=== PATIENT | male | born 1970 | race Caucasian/White ===

== ENCOUNTER 2019-02-26 11:51 | Emergency (ER) | payer MEDICARE, MEDICAID ==
[~2019-02-26] VITALS: Ht 170.2 cm; Wt 113.6 kg
[~2019-02-26 11:51] MED LIST: HYDR-3565 PO; IBUP-1574 PO; INDO-12 PO; INDO50CA96 PO
[2019-02-26 12:07] VITALS: BP 178/100
[2019-02-26] MEDS ORDERED: HYDROcodone/acetaminophen 10/325mg tab PO ONE (13:30)
[2019-02-26] MEDS ORDERED: triamcinolone acetonide 40mg/ml inj IM ONE ×2 (13:30→13:40)
[2019-02-26] MEDS ORDERED: IBUP-1984 PO (13:38)
[2019-02-26] MEDS ORDERED: COLC0.6T69 PO (13:38)
[2019-02-26] MEDS ORDERED: colchicine 0.6mg tablet PO ONE (13:40)
== END 2019-02-26 14:05 | disposition home or self-care (01) ==
LOC: ER 11:51
DX: M10.9 Gout, unspecified (principal); I10 Essential (primary) hypertension; G89.29 Other chronic pain; Z56.0 Unemployment, unspecified; Z88.1 Allergy status to other antibiotic agents; Z88.5 Allergy status to narcotic agent; Z88.8 Allergy status to other drugs, medicaments and biological substances; Z79.899 Other long term (current) drug therapy
CPT/HCPCS: 96372; 99283; J3301

== ENCOUNTER 2023-08-29 10:42 | Day surgery (SDC) | payer MEDICARE, MEDICAID ==
[2023-08-23 14:46] LABS: ALBUMIN 3.8 G/DL (3.4-5.0); ALKALINE PHOSPHATASE 74 IU/L (46-116); BLOOD UREA NITROGEN 15 MG/DL (7-18); BUN/CREATININE RATIO 15.3 (10.0-20.0); CALCIUM 8.9 MG/DL (8.5-10.1); CHLORIDE 104 MMOL/L (99-107); CREATININE 0.98 MG/DL (0.60-1.10); PRE OP ALT 41 U/L (30-65); PRE OP ANION GAP 6 (8-16); PRE OP AST 17 U/L (10-37); PRE OP BILIRUB, TOTAL 0.4 MG/DL (0.0-1.0); PRE OP GLUCOSE 108 MG/DL (70-104); PRE OP SODIUM 140 MMOL/L (135-145); TOTAL CARBON DIOXIDE 29.6 MMOL/L (24-32); TOTAL PROTEIN 7.6 G/DL (6.4-8.2); eGFR 80 ML/MIN
[2023-08-23 14:48] LABS: BASOPHILS # (AUTO) 0.1 X10'3 (0-0.2); EOSINOPHILS # (AUTO) 0.3 X10'3 (0-0.9); LYMPHOCYTES % (AUTO) 28.4 % (21-51); MEAN CORPUSCULAR HEMOGLOBIN 30.2 PG (27.0-31.0); MEAN CORPUSCULAR HGB CONC 33.4 g/dL (33.0-36.5); MEAN CORPUSCULAR VOLUME 90.3 FL (78-98); MEAN PLATELET VOLUME 8.7 FL (7.4-10.4); MONOCYTES # (AUTO) 1.1 X10'3 (0-0.9); MONOCYTES % (AUTO) 7.9 % (2-12); NEUTROPHILS # (AUTO) 8.6 X10'3 (1.8-7.7); NEUTROPHILS % (AUTO) 60.7 % (42-75); PRE OP HEMATOCRIT 50.7 % (42.0-52.0); PRE OP PLATELET COUNT 296 X10'3 (140-440); PRE OP WHITE BLOOD COUNT 14.1 10'3 (4.8-10.8); RED BLOOD COUNT 5.62 X10'6 (4.70-6.10); RED CELL DISTRIBUTION WIDTH 15.4 % (11.5-14.5)
[2023-08-29] VITALS (7 sets, daily range): BP systolic 108–154; BP diastolic 76–100; PULSE 74–91; RESP 12–18; TEMP 97.7; O2SAT 94–95
[~2023-08-29] VITALS: Ht 170.2 cm; Wt 129.7 kg
[~2023-08-29 10:42] MED LIST changes: +ALLO100T PO; +ASPI-1071 PO; +CARV25TA3 PO; +DOCUMENT DATE & TIME OF BETA-BLOCKER PO ONE; +DOXA1TAB4 PO; -HYDR-3565 PO; +HYDR-3972 PO; +HYDR25TA5 PO; -IBUP-1574 PO; -INDO-12 PO; -INDO50CA96 PO; +LISI40TA13 PO; +MULT-1168 PO; +OMEG100037 PO; +ROSU10TA2 PO; +TEST200V33 IM; +VITC500T PO; +clindamycin-Cleocin 900mg/D5W 50 ML IV ONE
[2023-08-29] MEDS: famotidine 20mg tablet PO ONE (12:27)
[2023-08-29] MEDS: ringers solution, lacted 1,000 ML IV SCH (12:28)
[2023-08-29] MEDS ORDERED: morphine 2 MG/ML inj. syringe IV PRN (12:35)
[2023-08-29] MEDS ORDERED: ondansetron/PF 4mg/2ml inj IV PRN (12:35)
[2023-08-29] MEDS ORDERED: ringers solution, lacted 1,000 ML IV SCH (12:35)
[2023-08-29] MEDS ORDERED: morphine 4 MG/ML inj SYRINge IV PRN (12:35)
[2023-08-29] MEDS ORDERED: labetalol 20mg/4ml (5mg/ml) syringe IV PRN (12:35)
[2023-08-29] MEDS ORDERED: MIDAZolam 1 MG/ML 5ML VIAL ONE (14:21)
[2023-08-29] MEDS ORDERED: fentaNYL/PF 50MCG/1 ML 2ML syringe ONE (14:21)
[2023-08-29] MEDS ORDERED: LIDOcaine 0.5% (5mg/ml) 50ml vial ONE (14:32)
[2023-08-29] MEDS ORDERED: LIDOcaine 2% (20mg/ml) 5ml vial ONE (14:38)
[2023-08-29] MEDS ORDERED: propofol inj 20 ML IV ONE (14:39)
[2023-08-29] MEDS: BUPIVAcaine/PF 2.5mg/ml (0.25%) 10ml vial ONE (14:42)
[2023-08-29] MEDS: HYDROcodone/acetaminophen 10/325mg tab PO ONE (15:31)
== END 2023-08-29 15:45 | disposition home or self-care (01) ==
LOC: PAS 10:42
PROVIDERS: ATTEND Orthopaedic Surgery Hand Surgery
DX: G56.02 Carpal tunnel syndrome, left upper limb (principal); M65.332 Trigger finger, left middle finger; M65.342 Trigger finger, left ring finger; M65.4 Radial styloid tenosynovitis [de Quervain]; I10 Essential (primary) hypertension; M10.9 Gout, unspecified; M17.0 Bilateral primary osteoarthritis of knee; M19.072 Primary osteoarthritis, left ankle and foot; M19.071 Primary osteoarthritis, right ankle and foot; E11.59 Type 2 diabetes mellitus with other circulatory complications; E78.00 Pure hypercholesterolemia, unspecified; E66.01 Morbid (severe) obesity due to excess calories; Z68.42 Body mass index [BMI] 45.0-49.9, adult; G47.30 Sleep apnea, unspecified; F17.210 Nicotine dependence, cigarettes, uncomplicated; Z88.0 Allergy status to penicillin; Z88.5 Allergy status to narcotic agent; Z88.8 Allergy status to other drugs, medicaments and biological substances; Z98.890 Other specified postprocedural states; Z79.899 Other long term (current) drug therapy; Z96.662 Presence of left artificial ankle joint; F10.91 Alcohol use, unspecified, in remission
CPT/HCPCS: 25000; 26055; 36415; 64721; 80053; 82948; 85025; 93005; A6222; J2250; J2704; J3010; J3490; J7030; J7120; Z7506; Z7512; A4215; A6449; A7000